=== PATIENT | male | born 1950 | race Caucasian/White ===

== ENCOUNTER 2020-08-21 09:08 | Inpatient (IN) | payer BC, OTHER ==
[2020-08-21] MEDS ORDERED: ONDANSETRON 4 MG/2 ML VIAL IVPUSH ONE (09:31)
[2020-08-21] MEDS ORDERED: LACTATED RINGERS SOLUTION 1,000 ML IV STA (09:31)
[2020-08-21] MEDS ORDERED: oxyCODONE HCL 5 MG TABLET PO ONE (09:33)
[2020-08-21 09:35] VITALS: BMI 26.4
[2020-08-21 10:20] LABS: BASO % 0.3 % (0-2.0); EOS % 0.4 % (0-4.5); HEMATOCRIT 46.9 % (35.4-49); HEMOGLOBIN 15.6 GM/dL (11.7-16.9); LYMPH % 14.5 % (8-40); MCHC 33.1 g/dl (32.0-35.9); MEAN CELL VOLUME 87.5 fl (80-96); MEAN PLT VOLUME 7.5 fl (7.5-11.1); MONO % 7.6 % (3.8-10.2); NEUT % 77.2 % (42.8-82.8); PLATELET COUNT 141 K/MM3 (134-434); RBC 5.37 M/mm3 (4.00-5.60); RDW 14.1 % (11.9-15.9); WHITE BLOOD COUNT 5.9 K/mm3 (4.0-10.0)
[2020-08-21 10:27] LABS: INR 1.11 (0.83-1.09); PROTHROMBIN TIME (PATIENT) 13.4 SEC (9.7-13.0)
[2020-08-21 10:30] LABS: ACTIVATED PTT 36.2 SECONDS (25.2-36.5)
[2020-08-21 10:44] LABS: BLOOD UREA NITROGEN 14.2 mg/dL (7-18); CALCIUM 8.9 mg/dL (8.5-10.1)
[2020-08-21 10:45] LABS: ALBUMIN 3.6 g/dl (3.4-5.0)
[2020-08-21 10:47] LABS: CREATININE 0.8 mg/dL (0.55-1.3)
[2020-08-21 10:49] LABS: BILIRUBIN,TOTAL 0.8 mg/dL (0.2-1); TOT PROT 7.8 g/dl (6.4-8.2)
[2020-08-21 11:53] LABS: EPI CELLS 2 /uL (0-25.1); HYALINE CASTS 0 /uL (0-3.1); URINE APPEARANCE CLOUDY; URINE BACTERIA >9,000 /uL (0-1359); URINE BILIRUBIN NEGATIVE (NEGATIVE); URINE COLOR YELLOW; URINE GLUCOSE (UA) NEGATIVE (NEGATIVE); URINE KETONE 3+ (NEGATIVE); URINE LEUK ESTERASE 1+ (NEGATIVE); URINE NITRITE NEGATIVE (NEGATIVE); URINE PROTEIN 2+ (NEGATIVE); URINE RBC 509 /uL (0-23.9); URINE WBC 297 /uL (0-25.8)
[2020-08-21] MEDS ORDERED: CEFTRIAXONE 1,000 MG in DEXTROSE 5%-WATER - 50 ML IVPB ONE (14:15)
[2020-08-21] MEDS ORDERED: CEFTRIAXONE 1 GM/50 ML BAG ONE (14:33)
[2020-08-21] MEDS ORDERED: ENOXAPARIN NA (PORCINE) 40 MG/0.4 ML DISP.SYRIN SQ ONE (17:10)
[2020-08-21] MEDS: ENOXAPARIN NA (PORCINE) 40 MG/0.4 ML DISP.SYRIN SQ SCH (17:28)
[2020-08-21] MEDS ORDERED: oxyCODONE HCL 5 MG TABLET ONE (18:33)
[2020-08-21] MEDS: PATIENT'S OWN MEDICATION (NON-FORMULARY) (Oxycodone Hcl [Oxycodone Hcl] 10 MG Tablet) PO SCH (18:36)
[2020-08-21] MEDS ORDERED: DOCUSATE SODIUM 100 MG CAPSULE (FP) PO ONE (21:02)
[2020-08-21] MEDS: DOCUSATE SODIUM 100 MG CAPSULE (FP) PO SCH (21:07)
[2020-08-21] MEDS: POLYETHYLENE GLYCOL 3350 119 GM BTL PO SCH (21:10)
[2020-08-21] MEDS ORDERED: GABAPENTIN 100 MG CAPSULE ONE (22:57)
[2020-08-21] MEDS: GABAPENTIN 400 MG CAPSULE PO SCH (23:14)
[2020-08-22 08:15] LABS: ALBUMIN 3.1 g/dl (3.4-5.0); BLOOD UREA NITROGEN 14.5 mg/dL (7-18); CALCIUM 8.5 mg/dL (8.5-10.1); MAGNESIUM 2.1 mg/dL (1.8-2.4)
[2020-08-22 08:17] LABS: BASO % 0.4 % (0-2.0); EOS % 0.4 % (0-4.5); HEMOGLOBIN 13.6 GM/dL (11.7-16.9); LYMPH % 15.8 % (8-40); MCH 28.8 pg (25.7-33.7); MCHC 33.2 g/dl (32.0-35.9); MEAN CELL VOLUME 86.9 fl (80-96); MEAN PLT VOLUME 7.9 fl (7.5-11.1); MONO % 10.9 % (3.8-10.2); NEUT % 72.5 % (42.8-82.8); PLATELET COUNT 136 K/MM3 (134-434); RBC 4.72 M/mm3 (4.00-5.60); RDW 14.3 % (11.9-15.9); WHITE BLOOD COUNT 6.2 K/mm3 (4.0-10.0)
[2020-08-22 08:18] LABS: CREATININE 0.8 mg/dL (0.55-1.3)
[2020-08-22 08:19] LABS: PHOSPHOROUS 3.4 mg/dL (2.5-4.9)
[2020-08-22 08:20] LABS: BILIRUBIN,TOTAL 0.8 mg/dL (0.2-1); TOT PROT 6.5 g/dl (6.4-8.2)
[2020-08-22] MEDS: ENOXAPARIN NA (PORCINE) 40 MG/0.4 ML DISP.SYRIN SQ SCH (11:50)
[2020-08-22] MEDS: POLYETHYLENE GLYCOL 3350 119 GM BTL PO SCH (11:50)
[2020-08-22] MEDS: NYSTATIN 500,000 UNITS/5 ML SUSPENSION PO SCH ×3 (11:50→23:27)
[2020-08-22] MEDS: GABAPENTIN 400 MG CAPSULE PO SCH ×3 (11:50→21:23)
[2020-08-22] MEDS: DOCUSATE SODIUM 100 MG CAPSULE (FP) PO SCH (11:51)
[2020-08-22] MEDS: PHENOL 177 ML SPRAY BOTTLE MM PRN ×3 (11:51→23:30)
[2020-08-22] MEDS: oxyCODONE HCL 5 MG TABLET PO PRN ×3 (11:51→23:27)
[2020-08-22] MEDS: PATIENT'S OWN MEDICATION (NON-FORMULARY) (Oxycodone Hcl [Oxycodone Hcl] 10 MG Tablet) PO SCH (11:52)
[2020-08-22] MEDS: ASCORBIC ACID 500 MG TABLET (FP) PO SCH (21:23)
[2020-08-23] MEDS: oxyCODONE HCL 5 MG TABLET PO PRN ×2 (05:43→13:56)
[2020-08-23] MEDS: GABAPENTIN 400 MG CAPSULE PO SCH ×3 (05:43→23:00)
[2020-08-23] MEDS: NYSTATIN 500,000 UNITS/5 ML SUSPENSION PO SCH ×3 (05:43→18:34)
[2020-08-23 07:57] LABS: POTASSIUM 3.5 mmol/L (3.5-5.1)
[2020-08-23 08:00] LABS: BASO % 0.4 % (0-2.0); CALCIUM 8.4 mg/dL (8.5-10.1); EOS % 0.9 % (0-4.5); HEMATOCRIT 41.8 % (35.4-49); HEMOGLOBIN 13.8 GM/dL (11.7-16.9); MCH 28.8 pg (25.7-33.7); MCHC 33.1 g/dl (32.0-35.9); MEAN CELL VOLUME 87.1 fl (80-96); MEAN PLT VOLUME 7.7 fl (7.5-11.1); MONO % 10.2 % (3.8-10.2); NEUT % 74.5 % (42.8-82.8); PLATELET COUNT 129 K/MM3 (134-434); WHITE BLOOD COUNT 5.4 K/mm3 (4.0-10.0)
[2020-08-23 08:01] LABS: BLOOD UREA NITROGEN 16.5 mg/dL (7-18); MAGNESIUM 2.1 mg/dL (1.8-2.4)
[2020-08-23 08:04] LABS: CREATININE 0.8 mg/dL (0.55-1.3)
[2020-08-23 08:05] LABS: BILIRUBIN,TOTAL 0.9 mg/dL (0.2-1); TOT PROT 6.3 g/dl (6.4-8.2)
[2020-08-23] MEDS ORDERED: POTASSIUM CHLORIDE TABS 20 MEQ TABLET.ER (FP) PO ONE (09:00)
[2020-08-23] MEDS ORDERED: ENOXAPARIN NA (PORCINE) 40 MG/0.4 ML DISP.SYRIN SQ SCH (10:00)
[2020-08-23] MEDS: ZINC SULFATE 220 MG CAPSULE (FP) PO SCH (10:13)
[2020-08-23] MEDS: DULoxetine HCL 20 MG CAPSULE.DR PO SCH (10:13)
[2020-08-23] MEDS: CHOLECALCIFEROL (VIT D3) 1,000 UNIT (25 MCG) TABLET PO SCH (10:13)
[2020-08-23] MEDS: POLYETHYLENE GLYCOL 3350 119 GM BTL PO SCH (10:13)
[2020-08-23] MEDS: ASCORBIC ACID 500 MG TABLET (FP) PO SCH ×2 (10:14→22:08)
[2020-08-23] MEDS: CEFTRIAXONE 1 GM in DEXTROSE 5%-WATER - 50 ML IVPB SCH (12:38)
[2020-08-23] MEDS: ENOXAPARIN NA (PORCINE) 100 MG/1 ML DISP.SYRIN SQ SCH ×2 (12:39→22:08)
[2020-08-23] MEDS ORDERED: PANTOPRAZOLE 40 MG TABLET PO ONE (16:19)
[2020-08-23] MEDS ORDERED: PT OWN MED DRAWER 7, Y5N ONE (21:15)
[2020-08-23] MEDS: DOCUSATE SODIUM 100 MG CAPSULE (FP) PO SCH (22:08)
[2020-08-24] MEDS: NYSTATIN 500,000 UNITS/5 ML SUSPENSION PO SCH ×4 (01:55→18:32)
[2020-08-24] MEDS: GABAPENTIN 400 MG CAPSULE PO SCH ×3 (05:59→22:01)
[2020-08-24] MEDS ORDERED: cefTRIAXone SODIUM 1 GM VIAL ONE (08:45)
[2020-08-24] MEDS ORDERED: DEXTROSE 5%-WATER - 50 ML IVPB ONE (08:45)
[2020-08-24] MEDS ORDERED: PT OWN MED DRAWER 7, Y5N ONE ×3 (08:47→13:12)
[2020-08-24 08:48] LABS: BASO % 0.6 % (0-2.0); EOS % 1.8 % (0-4.5); HEMATOCRIT 43.5 % (35.4-49); HEMOGLOBIN 14.7 GM/dL (11.7-16.9); LYMPH % 16.9 % (8-40); MCH 29.3 pg (25.7-33.7); MCHC 33.8 g/dl (32.0-35.9); MEAN CELL VOLUME 86.9 fl (80-96); MONO % 9.9 % (3.8-10.2); NEUT % 70.8 % (42.8-82.8); PLATELET COUNT 135 K/MM3 (134-434); RDW 14.4 % (11.9-15.9); WHITE BLOOD COUNT 4.6 K/mm3 (4.0-10.0)
[2020-08-24] MEDS: ENOXAPARIN NA (PORCINE) 100 MG/1 ML DISP.SYRIN SQ SCH ×2 (09:02→21:55)
[2020-08-24] MEDS: POLYETHYLENE GLYCOL 3350 119 GM BTL PO SCH (09:05)
[2020-08-24] MEDS: CHOLECALCIFEROL (VIT D3) 1,000 UNIT (25 MCG) TABLET PO SCH (09:07)
[2020-08-24] MEDS: CEFTRIAXONE 1 GM in DEXTROSE 5%-WATER - 50 ML IVPB SCH (09:07)
[2020-08-24] MEDS: PANTOPRAZOLE 40 MG TABLET PO SCH (09:07)
[2020-08-24] MEDS: ASCORBIC ACID 500 MG TABLET (FP) PO SCH ×2 (09:07→21:55)
[2020-08-24] MEDS: ZINC SULFATE 220 MG CAPSULE (FP) PO SCH (09:07)
[2020-08-24 09:21] LABS: POTASSIUM 3.8 mmol/L (3.5-5.1)
[2020-08-24 09:24] LABS: ALBUMIN 3.2 g/dl (3.4-5.0); BLOOD UREA NITROGEN 16.6 mg/dL (7-18); CALCIUM 8.6 mg/dL (8.5-10.1); MAGNESIUM 2.2 mg/dL (1.8-2.4)
[2020-08-24 09:27] LABS: CREATININE 0.7 mg/dL (0.55-1.3)
[2020-08-24 09:29] LABS: BILIRUBIN,TOTAL 0.9 mg/dL (0.2-1); TOT PROT 6.8 g/dl (6.4-8.2)
[2020-08-24] MEDS: DULoxetine HCL 20 MG CAPSULE.DR PO SCH (10:23)
[2020-08-24] MEDS: oxyCODONE HCL 5 MG TABLET PO PRN ×2 (10:40→18:11)
[2020-08-24] MEDS ORDERED: TAMSULOSIN HCL 0.4 MG CAP PO ONE (11:35)
[2020-08-24] MEDS: DOCUSATE SODIUM 100 MG CAPSULE (FP) PO SCH (21:55)
[2020-08-25] MEDS: NYSTATIN 500,000 UNITS/5 ML SUSPENSION PO SCH ×4 (00:51→17:15)
[2020-08-25] MEDS: oxyCODONE HCL 5 MG TABLET PO PRN ×4 (06:43→22:22)
[2020-08-25] MEDS: GABAPENTIN 400 MG CAPSULE PO SCH ×3 (06:44→22:23)
[2020-08-25 08:51] LABS: BASO % 0.3 % (0-2.0); EOS % 2.2 % (0-4.5); HEMOGLOBIN 13.7 GM/dL (11.7-16.9); LYMPH % 11.6 % (8-40); MCH 29.4 pg (25.7-33.7); MCHC 34.3 g/dl (32.0-35.9); MEAN CELL VOLUME 85.7 fl (80-96); MEAN PLT VOLUME 7.9 fl (7.5-11.1); MONO % 10.8 % (3.8-10.2); NEUT % 75.1 % (42.8-82.8); PLATELET COUNT 132 K/MM3 (134-434); RBC 4.67 M/mm3 (4.00-5.60); WHITE BLOOD COUNT 4.4 K/mm3 (4.0-10.0)
[2020-08-25] MEDS ORDERED: cefTRIAXone SODIUM 1 GM VIAL ONE (09:02)
[2020-08-25] MEDS ORDERED: DEXTROSE 5%-WATER - 50 ML IVPB ONE (09:02)
[2020-08-25] MEDS: TAMSULOSIN HCL 0.4 MG CAP PO SCH (09:30)
[2020-08-25] MEDS: DULoxetine HCL 20 MG CAPSULE.DR PO SCH (09:30)
[2020-08-25] MEDS: ENOXAPARIN NA (PORCINE) 100 MG/1 ML DISP.SYRIN SQ SCH ×2 (09:31→22:22)
[2020-08-25] MEDS: PANTOPRAZOLE 40 MG TABLET PO SCH ×2 (09:31→22:21)
[2020-08-25] MEDS: CEFTRIAXONE 1 GM in DEXTROSE 5%-WATER - 50 ML IVPB SCH (09:31)
[2020-08-25] MEDS: ZINC SULFATE 220 MG CAPSULE (FP) PO SCH (09:31)
[2020-08-25] MEDS: ASCORBIC ACID 500 MG TABLET (FP) PO SCH ×2 (09:32→22:21)
[2020-08-25] MEDS: CHOLECALCIFEROL (VIT D3) 1,000 UNIT (25 MCG) TABLET PO SCH (09:32)
[2020-08-25] MEDS: POLYETHYLENE GLYCOL 3350 119 GM BTL PO SCH (09:42)
[2020-08-25 10:31] LABS: POTASSIUM 3.6 mmol/L (3.5-5.1)
[2020-08-25 10:34] LABS: CALCIUM 8.1 mg/dL (8.5-10.1)
[2020-08-25 10:35] LABS: ALBUMIN 2.9 g/dl (3.4-5.0); BLOOD UREA NITROGEN 14.7 mg/dL (7-18); MAGNESIUM 2.1 mg/dL (1.8-2.4)
[2020-08-25 10:38] LABS: CREATININE 0.5 mg/dL (0.55-1.3)
[2020-08-25 10:40] LABS: BILIRUBIN,TOTAL 1.2 mg/dL (0.2-1); TOT PROT 6.4 g/dl (6.4-8.2)
[2020-08-25] MEDS ORDERED: TIZANIDINE HCL 2 MG TABLET PO PRN (11:14)
[2020-08-25] MEDS: DOCUSATE SODIUM 100 MG CAPSULE (FP) PO SCH (22:21)
[2020-08-25] MEDS: BACLOFEN 10 MG TABLET (FP) PO SCH (22:21)
[2020-08-26] MEDS: NYSTATIN 500,000 UNITS/5 ML SUSPENSION PO SCH ×4 (00:10→17:47)
[2020-08-26] MEDS: BACLOFEN 10 MG TABLET (FP) PO SCH ×3 (06:03→22:07)
[2020-08-26] MEDS: GABAPENTIN 400 MG CAPSULE PO SCH ×3 (06:04→22:09)
[2020-08-26] MEDS: oxyCODONE HCL 5 MG TABLET PO PRN ×2 (06:04→14:19)
[2020-08-26] MEDS ORDERED: cefTRIAXone SODIUM 1 GM VIAL ONE (08:13)
[2020-08-26] MEDS ORDERED: PT OWN MED DRAWER 7, Y5N ONE ×2 (08:13→14:13)
[2020-08-26] MEDS ORDERED: DEXTROSE 5%-WATER - 50 ML IVPB ONE (08:14)
[2020-08-26 09:14] LABS: BASO % 0.3 % (0-2.0); EOS % 1.2 % (0-4.5); HEMATOCRIT 38.7 % (35.4-49); HEMOGLOBIN 13.5 GM/dL (11.7-16.9); LYMPH % 10.6 % (8-40); MCH 30.2 pg (25.7-33.7); MCHC 34.8 g/dl (32.0-35.9); MEAN CELL VOLUME 86.6 fl (80-96); MEAN PLT VOLUME 8.1 fl (7.5-11.1); MONO % 10.5 % (3.8-10.2); NEUT % 77.4 % (42.8-82.8); PLATELET COUNT 147 K/MM3 (134-434); RBC 4.46 M/mm3 (4.00-5.60); RDW 13.8 % (11.9-15.9); WHITE BLOOD COUNT 4.6 K/mm3 (4.0-10.0)
[2020-08-26] MEDS: ASCORBIC ACID 500 MG TABLET (FP) PO SCH ×2 (09:41→22:07)
[2020-08-26] MEDS: CEFTRIAXONE 1 GM in DEXTROSE 5%-WATER - 50 ML IVPB SCH (09:41)
[2020-08-26] MEDS: PANTOPRAZOLE 40 MG TABLET PO SCH ×2 (09:41→22:08)
[2020-08-26] MEDS: CHOLECALCIFEROL (VIT D3) 1,000 UNIT (25 MCG) TABLET PO SCH (09:42)
[2020-08-26] MEDS: ZINC SULFATE 220 MG CAPSULE (FP) PO SCH (09:42)
[2020-08-26] MEDS: TAMSULOSIN HCL 0.4 MG CAP PO SCH (09:43)
[2020-08-26] MEDS: POLYETHYLENE GLYCOL 3350 119 GM BTL PO SCH (09:43)
[2020-08-26] MEDS: ENOXAPARIN NA (PORCINE) 100 MG/1 ML DISP.SYRIN SQ SCH ×2 (09:43→22:08)
[2020-08-26 09:49] LABS: POTASSIUM 3.7 mmol/L (3.5-5.1)
[2020-08-26 10:00] LABS: BLOOD UREA NITROGEN 13.3 mg/dL (7-18)
[2020-08-26 10:04] LABS: CALCIUM 8.1 mg/dL (8.5-10.1); MAGNESIUM 2.1 mg/dL (1.8-2.4)
[2020-08-26 10:08] LABS: BILIRUBIN,TOTAL 1.3 mg/dL (0.2-1); CREATININE 0.7 mg/dL (0.55-1.3)
[2020-08-26 10:09] LABS: TOT PROT 6.4 g/dl (6.4-8.2)
[2020-08-26] MEDS: DULoxetine HCL 20 MG CAPSULE.DR PO SCH (12:32)
[2020-08-26] MEDS: DOCUSATE SODIUM 100 MG CAPSULE (FP) PO SCH (22:06)
[2020-08-27] MEDS: NYSTATIN 500,000 UNITS/5 ML SUSPENSION PO SCH ×4 (00:36→17:07)
[2020-08-27] MEDS: GABAPENTIN 400 MG CAPSULE PO SCH ×3 (06:27→21:54)
[2020-08-27] MEDS: BACLOFEN 10 MG TABLET (FP) PO SCH ×3 (06:27→21:54)
[2020-08-27 08:41] LABS: BASO % 0.4 % (0-2.0); EOS % 0.6 % (0-4.5); HEMATOCRIT 41.1 % (35.4-49); LYMPH % 9.5 % (8-40); MCH 29.6 pg (25.7-33.7); MCHC 34.1 g/dl (32.0-35.9); MEAN CELL VOLUME 86.8 fl (80-96); MEAN PLT VOLUME 8.3 fl (7.5-11.1); MONO % 10.1 % (3.8-10.2); NEUT % 79.4 % (42.8-82.8); PLATELET COUNT 157 K/MM3 (134-434); RBC 4.73 M/mm3 (4.00-5.60); RDW 14.1 % (11.9-15.9); WHITE BLOOD COUNT 5.2 K/mm3 (4.0-10.0)
[2020-08-27 09:22] LABS: POTASSIUM 3.9 mmol/L (3.5-5.1)
[2020-08-27 09:26] LABS: BLOOD UREA NITROGEN 14.5 mg/dL (7-18)
[2020-08-27 09:28] LABS: ALBUMIN 3.1 g/dl (3.4-5.0); CALCIUM 8.6 mg/dL (8.5-10.1); MAGNESIUM 2.2 mg/dL (1.8-2.4)
[2020-08-27 09:31] LABS: CREATININE 0.7 mg/dL (0.55-1.3)
[2020-08-27 09:33] LABS: BILIRUBIN,TOTAL 0.9 mg/dL (0.2-1); TOT PROT 6.7 g/dl (6.4-8.2)
[2020-08-27] MEDS ORDERED: PT OWN MED DRAWER 7, Y5N ONE (10:55)
[2020-08-27] MEDS ORDERED: DEXTROSE 5%-WATER - 50 ML IVPB ONE (10:55)
[2020-08-27] MEDS ORDERED: cefTRIAXone SODIUM 1 GM VIAL ONE (10:55)
[2020-08-27] MEDS: ASCORBIC ACID 500 MG TABLET (FP) PO SCH ×2 (10:56→21:55)
[2020-08-27] MEDS: CHOLECALCIFEROL (VIT D3) 1,000 UNIT (25 MCG) TABLET PO SCH (10:56)
[2020-08-27] MEDS: ZINC SULFATE 220 MG CAPSULE (FP) PO SCH (10:57)
[2020-08-27] MEDS: CEFTRIAXONE 1 GM in DEXTROSE 5%-WATER - 50 ML IVPB SCH (10:57)
[2020-08-27] MEDS: PANTOPRAZOLE 40 MG TABLET PO SCH ×2 (10:57→21:55)
[2020-08-27] MEDS: TAMSULOSIN HCL 0.4 MG CAP PO SCH (10:57)
[2020-08-27] MEDS: DULoxetine HCL 20 MG CAPSULE.DR PO SCH (10:57)
[2020-08-27] MEDS: ENOXAPARIN NA (PORCINE) 100 MG/1 ML DISP.SYRIN SQ SCH ×2 (10:58→21:54)
[2020-08-27] MEDS: POLYETHYLENE GLYCOL 3350 119 GM BTL PO SCH (10:59)
[2020-08-27] MEDS ORDERED: ONDANSETRON 4 MG/2 ML VIAL IVPUSH ONE (12:45)
[2020-08-27] MEDS: ACETAMINOPHEN 325 MG TABLET (FP) PO PRN (16:59)
[2020-08-27] MEDS: DOCUSATE SODIUM 100 MG CAPSULE (FP) PO SCH (21:53)
[2020-08-28] MEDS: NYSTATIN 500,000 UNITS/5 ML SUSPENSION PO SCH ×4 (00:49→18:46)
[2020-08-28] MEDS: BACLOFEN 10 MG TABLET (FP) PO SCH ×3 (06:22→22:17)
[2020-08-28] MEDS: GABAPENTIN 400 MG CAPSULE PO SCH ×3 (06:22→22:18)
[2020-08-28] MEDS ORDERED: cefTRIAXone SODIUM 1 GM VIAL ONE (09:15)
[2020-08-28] MEDS ORDERED: DEXTROSE 5%-WATER - 50 ML IVPB ONE (09:15)
[2020-08-28 09:27] LABS: BASO % 0.3 % (0-2.0); HEMATOCRIT 39.6 % (35.4-49); HEMOGLOBIN 13.3 GM/dL (11.7-16.9); LYMPH % 7.5 % (8-40); MCH 28.7 pg (25.7-33.7); MCHC 33.6 g/dl (32.0-35.9); MEAN CELL VOLUME 85.4 fl (80-96); MEAN PLT VOLUME 8.3 fl (7.5-11.1); MONO % 12.8 % (3.8-10.2); NEUT % 79.4 % (42.8-82.8); PLATELET COUNT 157 K/MM3 (134-434); RBC 4.65 M/mm3 (4.00-5.60); WHITE BLOOD COUNT 9.6 K/mm3 (4.0-10.0)
[2020-08-28 09:43] LABS: POTASSIUM 3.3 mmol/L (3.5-5.1)
[2020-08-28] MEDS: CEFTRIAXONE 1 GM in DEXTROSE 5%-WATER - 50 ML IVPB SCH (09:52)
[2020-08-28] MEDS: CHOLECALCIFEROL (VIT D3) 1,000 UNIT (25 MCG) TABLET PO SCH (09:53)
[2020-08-28] MEDS: ZINC SULFATE 220 MG CAPSULE (FP) PO SCH (09:53)
[2020-08-28] MEDS: ENOXAPARIN NA (PORCINE) 100 MG/1 ML DISP.SYRIN SQ SCH ×2 (09:53→22:17)
[2020-08-28] MEDS: TAMSULOSIN HCL 0.4 MG CAP PO SCH (09:53)
[2020-08-28] MEDS: PANTOPRAZOLE 40 MG TABLET PO SCH ×2 (09:53→22:18)
[2020-08-28] MEDS: POLYETHYLENE GLYCOL 3350 119 GM BTL PO SCH (09:54)
[2020-08-28] MEDS: DULoxetine HCL 20 MG CAPSULE.DR PO SCH (09:54)
[2020-08-28 09:55] LABS: ALBUMIN 2.9 g/dl (3.4-5.0); BLOOD UREA NITROGEN 13.8 mg/dL (7-18); CALCIUM 8.5 mg/dL (8.5-10.1)
[2020-08-28] MEDS: oxyCODONE HCL 5 MG TABLET PO PRN ×2 (09:56→15:05)
[2020-08-28 09:57] LABS: MAGNESIUM 2.1 mg/dL (1.8-2.4)
[2020-08-28 10:01] LABS: CREATININE 0.6 mg/dL (0.55-1.3); TOT PROT 6.4 g/dl (6.4-8.2)
[2020-08-28 10:02] LABS: BILIRUBIN,TOTAL 1.1 mg/dL (0.2-1)
[2020-08-28] MEDS: METOCLOPRAMIDE HCL 10 MG TABLET (FP) PO PRN (10:03)
[2020-08-28] MEDS: ASCORBIC ACID 500 MG TABLET (FP) PO SCH ×2 (10:28→22:18)
[2020-08-28] MEDS ORDERED: PT OWN MED DRAWER 7, Y5N ONE ×2 (14:43→15:27)
[2020-08-28] MEDS ORDERED: POTASSIUM CHLORIDE TABS 20 MEQ TABLET.ER (FP) PO ONE (15:30)
[2020-08-28] MEDS: KCL 10 MEQ IVPB 10 MEQ/100 ML INFUS.BAG IVPB SCH ×2 (16:41→18:46)
[2020-08-28] MEDS: DOCUSATE SODIUM 100 MG CAPSULE (FP) PO SCH (22:17)
[2020-08-29] MEDS: NYSTATIN 500,000 UNITS/5 ML SUSPENSION PO SCH ×5 (00:42→23:20)
[2020-08-29] MEDS: GABAPENTIN 400 MG CAPSULE PO SCH ×4 (06:42→21:39)
[2020-08-29] MEDS: BACLOFEN 10 MG TABLET (FP) PO SCH ×3 (06:44→21:28)
[2020-08-29 08:51] LABS: BASO % 0.3 % (0-2.0); EOS % 0.3 % (0-4.5); HEMATOCRIT 37.7 % (35.4-49); HEMOGLOBIN 12.9 GM/dL (11.7-16.9); LYMPH % 7.1 % (8-40); MCH 29.7 pg (25.7-33.7); MCHC 34.3 g/dl (32.0-35.9); MEAN CELL VOLUME 86.7 fl (80-96); MEAN PLT VOLUME 8.4 fl (7.5-11.1); MONO % 11.7 % (3.8-10.2); NEUT % 80.6 % (42.8-82.8); PLATELET COUNT 163 K/MM3 (134-434); RBC 4.34 M/mm3 (4.00-5.60); RDW 14.1 % (11.9-15.9); WHITE BLOOD COUNT 10.6 K/mm3 (4.0-10.0)
[2020-08-29 09:08] LABS: POTASSIUM 3.6 mmol/L (3.5-5.1)
[2020-08-29 09:13] LABS: ALBUMIN 2.7 g/dl (3.4-5.0); CALCIUM 8.8 mg/dL (8.5-10.1); MAGNESIUM 2.1 mg/dL (1.8-2.4)
[2020-08-29 09:16] LABS: CREATININE 0.5 mg/dL (0.55-1.3)
[2020-08-29 09:18] LABS: BILIRUBIN,TOTAL 1.1 mg/dL (0.2-1); TOT PROT 6.3 g/dl (6.4-8.2)
[2020-08-29] MEDS ORDERED: cefTRIAXone SODIUM 1 GM VIAL ONE (11:00)
[2020-08-29] MEDS ORDERED: PT OWN MED DRAWER 7, Y5N ONE ×4 (11:00→21:11)
[2020-08-29] MEDS ORDERED: DEXTROSE 5%-WATER - 50 ML IVPB ONE (11:00)
[2020-08-29] MEDS: CEFTRIAXONE 1 GM in DEXTROSE 5%-WATER - 50 ML IVPB SCH (11:45)
[2020-08-29] MEDS: POLYETHYLENE GLYCOL 3350 119 GM BTL PO SCH (11:46)
[2020-08-29] MEDS: DULoxetine HCL 20 MG CAPSULE.DR PO SCH (11:46)
[2020-08-29] MEDS: PANTOPRAZOLE 40 MG TABLET PO SCH ×2 (11:46→21:28)
[2020-08-29] MEDS: TAMSULOSIN HCL 0.4 MG CAP PO SCH (11:46)
[2020-08-29] MEDS: ENOXAPARIN NA (PORCINE) 100 MG/1 ML DISP.SYRIN SQ SCH ×2 (11:47→21:27)
[2020-08-29] MEDS: oxyCODONE HCL 5 MG TABLET PO PRN ×3 (11:47→23:20)
[2020-08-29] MEDS: ASCORBIC ACID 500 MG TABLET (FP) PO SCH ×2 (12:10→21:28)
[2020-08-29] MEDS: CHOLECALCIFEROL (VIT D3) 1,000 UNIT (25 MCG) TABLET PO SCH (12:10)
[2020-08-29] MEDS: ZINC SULFATE 220 MG CAPSULE (FP) PO SCH (12:10)
[2020-08-29] MEDS: AMINO ACIDS 4.25%/D5W 1,000 ML IV SCH (15:17)
[2020-08-29] MEDS: DOCUSATE SODIUM 100 MG CAPSULE (FP) PO SCH ×2 (21:28→21:41)
[2020-08-30] MEDS: AMINO ACIDS 4.25%/D5W 1,000 ML IV SCH ×3 (04:08→19:05)
[2020-08-30] MEDS: oxyCODONE HCL 5 MG TABLET PO PRN ×2 (05:59→22:30)
[2020-08-30] MEDS: BACLOFEN 10 MG TABLET (FP) PO SCH ×3 (05:59→22:31)
[2020-08-30] MEDS: NYSTATIN 500,000 UNITS/5 ML SUSPENSION PO SCH ×3 (06:04→17:31)
[2020-08-30] MEDS: GABAPENTIN 400 MG CAPSULE PO SCH ×3 (06:04→22:31)
[2020-08-30] MEDS ORDERED: cefTRIAXone SODIUM 1 GM VIAL ONE (09:52)
[2020-08-30] MEDS ORDERED: DEXTROSE 5%-WATER - 50 ML IVPB ONE (09:52)
[2020-08-30] MEDS ORDERED: PT OWN MED DRAWER 7, Y5N ONE (09:52)
[2020-08-30] MEDS: ZINC SULFATE 220 MG CAPSULE (FP) PO SCH (10:11)
[2020-08-30] MEDS: CHOLECALCIFEROL (VIT D3) 1,000 UNIT (25 MCG) TABLET PO SCH (10:11)
[2020-08-30] MEDS: POLYETHYLENE GLYCOL 3350 119 GM BTL PO SCH (10:11)
[2020-08-30] MEDS: ENOXAPARIN NA (PORCINE) 100 MG/1 ML DISP.SYRIN SQ SCH ×2 (10:12→22:30)
[2020-08-30] MEDS: TAMSULOSIN HCL 0.4 MG CAP PO SCH (10:12)
[2020-08-30] MEDS: PANTOPRAZOLE 40 MG TABLET PO SCH ×3 (10:12→22:44)
[2020-08-30] MEDS: ASCORBIC ACID 500 MG TABLET (FP) PO SCH ×2 (10:12→22:30)
[2020-08-30] MEDS: METOCLOPRAMIDE HCL 10 MG TABLET (FP) PO PRN (10:12)
[2020-08-30] MEDS: DULoxetine HCL 20 MG CAPSULE.DR PO SCH (10:13)
[2020-08-30 11:43] LABS: BASO % 0.5 % (0-2.0); EOS % 1.6 % (0-4.5); HEMATOCRIT 34.4 % (35.4-49); HEMOGLOBIN 11.4 GM/dL (11.7-16.9); MCH 28.3 pg (25.7-33.7); MCHC 33.2 g/dl (32.0-35.9); MEAN CELL VOLUME 85.4 fl (80-96); MEAN PLT VOLUME 7.8 fl (7.5-11.1); MONO % 11.7 % (3.8-10.2); NEUT % 77.2 % (42.8-82.8); PLATELET COUNT 188 K/MM3 (134-434); RBC 4.03 M/mm3 (4.00-5.60); WHITE BLOOD COUNT 9.2 K/mm3 (4.0-10.0)
[2020-08-30 11:58] LABS: POTASSIUM 3.4 mmol/L (3.5-5.1)
[2020-08-30 12:00] LABS: CALCIUM 7.8 mg/dL (8.5-10.1)
[2020-08-30 12:01] LABS: ALBUMIN 2.3 g/dl (3.4-5.0); BLOOD UREA NITROGEN 17.4 mg/dL (7-18); MAGNESIUM 1.8 mg/dL (1.8-2.4)
[2020-08-30 12:04] LABS: CREATININE 0.5 mg/dL (0.55-1.3)
[2020-08-30 12:05] LABS: TOT PROT 5.8 g/dl (6.4-8.2)
[2020-08-30] MEDS ORDERED: POTASSIUM CHLORIDE TABS 20 MEQ TABLET.ER (FP) PO ONE (15:44)
[2020-08-30] MEDS: DOCUSATE SODIUM 100 MG CAPSULE (FP) PO SCH (22:31)
[2020-08-31] MEDS: NYSTATIN 500,000 UNITS/5 ML SUSPENSION PO SCH ×5 (00:30→23:33)
[2020-08-31] MEDS: AMINO ACIDS 4.25%/D5W 1,000 ML IV SCH ×4 (02:26→23:33)
[2020-08-31] MEDS: oxyCODONE HCL 5 MG TABLET PO PRN (04:22)
[2020-08-31] MEDS: BACLOFEN 10 MG TABLET (FP) PO SCH ×4 (06:53→22:38)
[2020-08-31] MEDS: GABAPENTIN 400 MG CAPSULE PO SCH ×4 (06:53→22:43)
[2020-08-31] MEDS ORDERED: PT OWN MED DRAWER 7, Y5N ONE ×3 (09:20→22:41)
[2020-08-31] MEDS: ASCORBIC ACID 500 MG TABLET (FP) PO SCH ×3 (09:29→22:38)
[2020-08-31] MEDS: CHOLECALCIFEROL (VIT D3) 1,000 UNIT (25 MCG) TABLET PO SCH (09:29)
[2020-08-31] MEDS: TAMSULOSIN HCL 0.4 MG CAP PO SCH (09:29)
[2020-08-31] MEDS: ENOXAPARIN NA (PORCINE) 100 MG/1 ML DISP.SYRIN SQ SCH ×2 (09:29→22:39)
[2020-08-31] MEDS: ZINC SULFATE 220 MG CAPSULE (FP) PO SCH (09:29)
[2020-08-31] MEDS: PANTOPRAZOLE 40 MG TABLET PO SCH ×2 (09:29→22:39)
[2020-08-31] MEDS: DULoxetine HCL 20 MG CAPSULE.DR PO SCH (09:30)
[2020-08-31] MEDS: POLYETHYLENE GLYCOL 3350 119 GM BTL PO SCH (09:31)
[2020-08-31 12:39] LABS: BASO % 0.4 % (0-2.0); EOS % 0.9 % (0-4.5); HEMATOCRIT 34.8 % (35.4-49); HEMOGLOBIN 11.6 GM/dL (11.7-16.9); LYMPH % 7.5 % (8-40); MCH 28.5 pg (25.7-33.7); MCHC 33.2 g/dl (32.0-35.9); MEAN CELL VOLUME 85.9 fl (80-96); MEAN PLT VOLUME 8.3 fl (7.5-11.1); MONO % 14.3 % (3.8-10.2); NEUT % 76.9 % (42.8-82.8); PLATELET COUNT 286 K/MM3 (134-434); RBC 4.06 M/mm3 (4.00-5.60); WHITE BLOOD COUNT 13.9 K/mm3 (4.0-10.0)
[2020-08-31 12:58] LABS: POTASSIUM 3.6 mmol/L (3.5-5.1)
[2020-08-31 13:04] LABS: CALCIUM 8.1 mg/dL (8.5-10.1)
[2020-08-31 13:05] LABS: ALBUMIN 2.4 g/dl (3.4-5.0); BLOOD UREA NITROGEN 19.8 mg/dL (7-18); MAGNESIUM 2.1 mg/dL (1.8-2.4)
[2020-08-31 13:08] LABS: CREATININE 0.6 mg/dL (0.55-1.3)
[2020-08-31 13:09] LABS: BILIRUBIN,TOTAL 1.2 mg/dL (0.2-1); TOT PROT 6.1 g/dl (6.4-8.2)
[2020-08-31] MEDS ORDERED: LACTATED RINGERS SOLUTION 1,000 ML/1,000 ML INFUS.BAG IV STA (15:18)
[2020-08-31] MEDS ORDERED: metoPROLOL SUCCINATE 25 MG TAB.SR.24H (FP) PO ONE (16:37)
[2020-08-31] MEDS ORDERED: METOPROLOL TARTRATE 25 MG TABLET (FP) PO ONE (16:38)
[2020-08-31] MEDS: INSULIN SLIDING SCALE (NOVOLOG) 1 VIAL SQ SCH ×2 (17:13→22:59)
[2020-08-31] MEDS: DOCUSATE SODIUM 100 MG CAPSULE (FP) PO SCH ×2 (22:38→22:39)
[2020-09-01] MEDS: AMINO ACIDS 4.25%/D5W 1,000 ML IV SCH ×2 (00:58→11:00)
[2020-09-01] MEDS ORDERED: PT OWN MED DRAWER 7, Y5N ONE ×3 (01:01→10:46)
[2020-09-01] MEDS: INSULIN SLIDING SCALE (NOVOLOG) 1 VIAL SQ SCH ×4 (06:28→22:05)
[2020-09-01] MEDS: NYSTATIN 500,000 UNITS/5 ML SUSPENSION PO SCH ×4 (06:37→23:22)
[2020-09-01] MEDS: BACLOFEN 10 MG TABLET (FP) PO SCH ×3 (06:37→22:00)
[2020-09-01] MEDS: GABAPENTIN 400 MG CAPSULE PO SCH ×3 (06:37→22:05)
[2020-09-01 08:26] LABS: BASO % 0.5 % (0-2.0); EOS % 0.7 % (0-4.5); HEMATOCRIT 27.3 % (35.4-49); HEMOGLOBIN 9.3 GM/dL (11.7-16.9); LYMPH % 8.4 % (8-40); MCH 28.9 pg (25.7-33.7); MEAN CELL VOLUME 84.9 fl (80-96); MEAN PLT VOLUME 7.5 fl (7.5-11.1); MONO % 11.3 % (3.8-10.2); NEUT % 79.1 % (42.8-82.8); PLATELET COUNT 232 K/MM3 (134-434); RBC 3.22 M/mm3 (4.00-5.60); RDW 14.1 % (11.9-15.9); WHITE BLOOD COUNT 10.7 K/mm3 (4.0-10.0)
[2020-09-01 08:45] LABS: POTASSIUM 3.3 mmol/L (3.5-5.1)
[2020-09-01 08:56] LABS: ALBUMIN 2.1 g/dl (3.4-5.0); BLOOD UREA NITROGEN 19.4 mg/dL (7-18); CALCIUM 7.8 mg/dL (8.5-10.1)
[2020-09-01 08:57] LABS: MAGNESIUM 1.8 mg/dL (1.8-2.4)
[2020-09-01 09:00] LABS: CREATININE 0.5 mg/dL (0.55-1.3)
[2020-09-01 09:01] LABS: BILIRUBIN,TOTAL 1.1 mg/dL (0.2-1); TOT PROT 5.6 g/dl (6.4-8.2)
[2020-09-01] MEDS ORDERED: KCL 10 MEQ IVPB 10 MEQ/100 ML INFUS.BAG IVPB SCH (09:15)
[2020-09-01] MEDS: PANTOPRAZOLE 40 MG TABLET PO SCH ×2 (10:43→22:05)
[2020-09-01] MEDS: CHOLECALCIFEROL (VIT D3) 1,000 UNIT (25 MCG) TABLET PO SCH (10:43)
[2020-09-01] MEDS: ASCORBIC ACID 500 MG TABLET (FP) PO SCH ×2 (10:43→22:05)
[2020-09-01] MEDS: TAMSULOSIN HCL 0.4 MG CAP PO SCH (10:43)
[2020-09-01] MEDS: ENOXAPARIN NA (PORCINE) 100 MG/1 ML DISP.SYRIN SQ SCH ×2 (10:43→22:04)
[2020-09-01] MEDS: ZINC SULFATE 220 MG CAPSULE (FP) PO SCH (10:43)
[2020-09-01] MEDS: DULoxetine HCL 20 MG CAPSULE.DR PO SCH (10:44)
[2020-09-01] MEDS: POLYETHYLENE GLYCOL 3350 119 GM BTL PO SCH (10:44)
[2020-09-01] MEDS: metoPROLOL SUCCINATE 25 MG TAB.SR.24H (FP) PO SCH (13:56)
[2020-09-01] MEDS: DOCUSATE SODIUM 100 MG CAPSULE (FP) PO SCH (22:00)
[2020-09-02] MEDS: AMINO ACIDS 4.25%/D5W 1,000 ML IV SCH ×2 (01:49→14:47)
[2020-09-02] MEDS: BACLOFEN 10 MG TABLET (FP) PO SCH ×3 (05:30→23:31)
[2020-09-02] MEDS: oxyCODONE HCL 5 MG TABLET PO PRN ×3 (05:30→23:31)
[2020-09-02] MEDS: NYSTATIN 500,000 UNITS/5 ML SUSPENSION PO SCH ×3 (05:34→18:03)
[2020-09-02] MEDS: GABAPENTIN 400 MG CAPSULE PO SCH ×3 (05:34→23:33)
[2020-09-02] MEDS: INSULIN SLIDING SCALE (NOVOLOG) 1 VIAL SQ SCH ×4 (06:13→23:32)
[2020-09-02 09:06] LABS: BASO % 0.4 % (0-2.0); HEMATOCRIT 26.6 % (35.4-49); LYMPH % 6.6 % (8-40); MCH 28.7 pg (25.7-33.7); MCHC 33.7 g/dl (32.0-35.9); MEAN PLT VOLUME 7.6 fl (7.5-11.1); MONO % 13.5 % (3.8-10.2); NEUT % 78.5 % (42.8-82.8); PLATELET COUNT 247 K/MM3 (134-434); RBC 3.13 M/mm3 (4.00-5.60); WHITE BLOOD COUNT 11.4 K/mm3 (4.0-10.0)
[2020-09-02 09:28] LABS: POTASSIUM 3.5 mmol/L (3.5-5.1)
[2020-09-02 09:36] LABS: ALBUMIN 2.1 g/dl (3.4-5.0); CALCIUM 7.6 mg/dL (8.5-10.1)
[2020-09-02 09:37] LABS: BLOOD UREA NITROGEN 16.4 mg/dL (7-18); MAGNESIUM 1.9 mg/dL (1.8-2.4)
[2020-09-02 09:38] LABS: TOT PROT 5.7 g/dl (6.4-8.2)
[2020-09-02 09:40] LABS: CREATININE 0.5 mg/dL (0.55-1.3)
[2020-09-02] MEDS ORDERED: PT OWN MED DRAWER 7, Y5N ONE (10:10)
[2020-09-02] MEDS: TAMSULOSIN HCL 0.4 MG CAP PO SCH (10:54)
[2020-09-02] MEDS: metoPROLOL SUCCINATE 25 MG TAB.SR.24H (FP) PO SCH (10:55)
[2020-09-02] MEDS: DULoxetine HCL 20 MG CAPSULE.DR PO SCH (10:55)
[2020-09-02] MEDS: PANTOPRAZOLE 40 MG TABLET PO SCH ×2 (10:55→23:32)
[2020-09-02] MEDS: ENOXAPARIN NA (PORCINE) 100 MG/1 ML DISP.SYRIN SQ SCH ×2 (10:56→22:52)
[2020-09-02] MEDS: POLYETHYLENE GLYCOL 3350 119 GM BTL PO SCH (10:56)
[2020-09-02] MEDS: ZINC SULFATE 220 MG CAPSULE (FP) PO SCH (11:15)
[2020-09-02] MEDS: ASCORBIC ACID 500 MG TABLET (FP) PO SCH ×2 (11:15→23:32)
[2020-09-02] MEDS: CHOLECALCIFEROL (VIT D3) 1,000 UNIT (25 MCG) TABLET PO SCH (11:15)
[2020-09-02] MEDS: DOCUSATE SODIUM 100 MG CAPSULE (FP) PO SCH (23:33)
[2020-09-03] MEDS: NYSTATIN 500,000 UNITS/5 ML SUSPENSION PO SCH ×5 (00:30→23:59)
[2020-09-03] MEDS: AMINO ACIDS 4.25%/D5W 1,000 ML IV SCH ×2 (03:38→16:46)
[2020-09-03] MEDS: GABAPENTIN 400 MG CAPSULE PO SCH ×2 (07:24→14:16)
[2020-09-03] MEDS: BACLOFEN 10 MG TABLET (FP) PO SCH ×2 (07:24→14:15)
[2020-09-03] MEDS: INSULIN SLIDING SCALE (NOVOLOG) 1 VIAL SQ SCH ×3 (07:29→16:47)
[2020-09-03 09:14] LABS: BASO % 0.5 % (0-2.0); EOS % 1.6 % (0-4.5); HEMATOCRIT 25.1 % (35.4-49); HEMOGLOBIN 8.6 GM/dL (11.7-16.9); LYMPH % 8.1 % (8-40); MCH 29.2 pg (25.7-33.7); MCHC 34.3 g/dl (32.0-35.9); MEAN CELL VOLUME 85.3 fl (80-96); MONO % 11.5 % (3.8-10.2); NEUT % 78.3 % (42.8-82.8); PLATELET COUNT 240 K/MM3 (134-434); RBC 2.94 M/mm3 (4.00-5.60); WHITE BLOOD COUNT 9.4 K/mm3 (4.0-10.0)
[2020-09-03 09:30] LABS: POTASSIUM 3.6 mmol/L (3.5-5.1)
[2020-09-03 09:33] LABS: ALBUMIN 2.1 g/dl (3.4-5.0); BLOOD UREA NITROGEN 17.4 mg/dL (7-18); CALCIUM 7.7 mg/dL (8.5-10.1); MAGNESIUM 1.8 mg/dL (1.8-2.4)
[2020-09-03 09:37] LABS: CREATININE 0.4 mg/dL (0.55-1.3)
[2020-09-03 09:38] LABS: BILIRUBIN,TOTAL 1.1 mg/dL (0.2-1); TOT PROT 5.8 g/dl (6.4-8.2)
[2020-09-03] MEDS ORDERED: PT OWN MED DRAWER 7, Y5N ONE ×3 (10:20→21:15)
[2020-09-03] MEDS: ENOXAPARIN NA (PORCINE) 100 MG/1 ML DISP.SYRIN SQ SCH ×2 (10:50→23:58)
[2020-09-03] MEDS: POLYETHYLENE GLYCOL 3350 119 GM BTL PO SCH (10:52)
[2020-09-03] MEDS: oxyCODONE HCL 5 MG TABLET PO PRN ×2 (10:53→16:47)
[2020-09-03] MEDS: ZINC SULFATE 220 MG CAPSULE (FP) PO SCH (11:34)
[2020-09-03] MEDS: metoPROLOL SUCCINATE 25 MG TAB.SR.24H (FP) PO SCH (11:34)
[2020-09-03] MEDS: TAMSULOSIN HCL 0.4 MG CAP PO SCH (11:34)
[2020-09-03] MEDS: PANTOPRAZOLE 40 MG TABLET PO SCH (11:34)
[2020-09-03] MEDS: ASCORBIC ACID 500 MG TABLET (FP) PO SCH (11:35)
[2020-09-03] MEDS: CHOLECALCIFEROL (VIT D3) 1,000 UNIT (25 MCG) TABLET PO SCH (11:35)
[2020-09-03] MEDS: DULoxetine HCL 20 MG CAPSULE.DR PO SCH (14:15)
[2020-09-03 17:34] LABS: EPI CELLS 1 /uL (0-25.1); HYALINE CASTS 5 /uL (0-3.1); PH,URINE 6.5 (5.0-8.0); URINE APPEARANCE CLOUDY; URINE BACTERIA 120 /uL (0-1359); URINE BILIRUBIN NEGATIVE (NEGATIVE); URINE COLOR YELLOW; URINE GLUCOSE (UA) NEGATIVE (NEGATIVE); URINE KETONE NEGATIVE (NEGATIVE); URINE LEUK ESTERASE TRACE (NEGATIVE); URINE NITRITE NEGATIVE (NEGATIVE); URINE PROTEIN TRACE (NEGATIVE); URINE UROBILINOGEN 4.0 E.U/dl mg/dL (0.2-1.0); URINE WBC 463 /uL (0-25.8)
[2020-09-03 18:55] LABS: URINE RBC 43.4 /uL (0-23.9); YEAST MODERATE (NEGATIVE)
[2020-09-04] MEDS: GABAPENTIN 400 MG CAPSULE PO SCH ×6 (00:01→23:26)
[2020-09-04] MEDS: FAT EMULSION/OLIVE/SOY (CLINOLIPID) 250 ML EMULSION IV SCH ×2 (00:04→22:39)
[2020-09-04] MEDS: DOCUSATE SODIUM 100 MG CAPSULE (FP) PO SCH ×3 (00:05→23:25)
[2020-09-04] MEDS: oxyCODONE HCL 5 MG TABLET PO PRN ×4 (00:07→23:27)
[2020-09-04] MEDS: INSULIN SLIDING SCALE (NOVOLOG) 1 VIAL SQ SCH ×5 (00:33→22:41)
[2020-09-04] MEDS: AMINO ACIDS 4.25%/D5W 1,000 ML IV SCH ×3 (01:49→16:48)
[2020-09-04] MEDS: ASCORBIC ACID 500 MG TABLET (FP) PO SCH ×4 (01:52→23:26)
[2020-09-04] MEDS: BACLOFEN 10 MG TABLET (FP) PO SCH ×6 (01:52→23:25)
[2020-09-04] MEDS: PANTOPRAZOLE 40 MG TABLET PO SCH ×4 (01:52→23:26)
[2020-09-04] MEDS: NYSTATIN 500,000 UNITS/5 ML SUSPENSION PO SCH ×6 (01:53→23:50)
[2020-09-04 10:21] LABS: BASO % 0.4 % (0-2.0); EOS % 2.1 % (0-4.5); HEMATOCRIT 25.9 % (35.4-49); LYMPH % 6.9 % (8-40); MCH 29.2 pg (25.7-33.7); MCHC 34.7 g/dl (32.0-35.9); MEAN CELL VOLUME 84.2 fl (80-96); MEAN PLT VOLUME 6.9 fl (7.5-11.1); NEUT % 76.6 % (42.8-82.8); PLATELET COUNT 242 K/MM3 (134-434); RBC 3.08 M/mm3 (4.00-5.60); WHITE BLOOD COUNT 9.9 K/mm3 (4.0-10.0)
[2020-09-04 11:01] LABS: POTASSIUM 3.4 mmol/L (3.5-5.1)
[2020-09-04] MEDS ORDERED: PT OWN MED DRAWER 7, Y5N ONE ×2 (11:11→18:15)
[2020-09-04 11:28] LABS: ALBUMIN 2.2 g/dl (3.4-5.0); BLOOD UREA NITROGEN 14.5 mg/dL (7-18); CALCIUM 7.8 mg/dL (8.5-10.1); MAGNESIUM 1.8 mg/dL (1.8-2.4)
[2020-09-04 11:31] LABS: CREATININE 0.4 mg/dL (0.55-1.3)
[2020-09-04 11:33] LABS: BILIRUBIN,TOTAL 1.3 mg/dL (0.2-1); TOT PROT 5.8 g/dl (6.4-8.2)
[2020-09-04] MEDS: ENOXAPARIN NA (PORCINE) 100 MG/1 ML DISP.SYRIN SQ SCH ×2 (11:53→22:42)
[2020-09-04] MEDS: POLYETHYLENE GLYCOL 3350 119 GM BTL PO SCH (11:54)
[2020-09-04] MEDS: metoPROLOL SUCCINATE 25 MG TAB.SR.24H (FP) PO SCH (12:14)
[2020-09-04] MEDS: CHOLECALCIFEROL (VIT D3) 1,000 UNIT (25 MCG) TABLET PO SCH (12:14)
[2020-09-04] MEDS: DULoxetine HCL 20 MG CAPSULE.DR PO SCH (12:14)
[2020-09-04] MEDS: TAMSULOSIN HCL 0.4 MG CAP PO SCH (12:14)
[2020-09-04] MEDS: ZINC SULFATE 220 MG CAPSULE (FP) PO SCH (12:14)
[2020-09-04] MEDS: POTASSIUM CHLORIDE 40 MEQ in AMINO ACIDS 4.25%/D5W 1,000 ML IV SCH (17:40)
[2020-09-05] MEDS: POTASSIUM CHLORIDE 40 MEQ in AMINO ACIDS 4.25%/D5W 1,000 ML IV SCH ×3 (04:00→14:46)
[2020-09-05] MEDS: INSULIN SLIDING SCALE (NOVOLOG) 1 VIAL SQ SCH ×4 (05:59→21:48)
[2020-09-05] MEDS: BACLOFEN 10 MG TABLET (FP) PO SCH ×3 (06:05→21:48)
[2020-09-05] MEDS: NYSTATIN 500,000 UNITS/5 ML SUSPENSION PO SCH ×3 (06:05→17:19)
[2020-09-05] MEDS: GABAPENTIN 400 MG CAPSULE PO SCH ×3 (06:05→21:49)
[2020-09-05] MEDS: oxyCODONE HCL 5 MG TABLET PO PRN ×2 (06:42→13:39)
[2020-09-05 09:08] LABS: POTASSIUM 3.4 mmol/L (3.5-5.1)
[2020-09-05 09:13] LABS: ALBUMIN 2.2 g/dl (3.4-5.0); BLOOD UREA NITROGEN 13.6 mg/dL (7-18); CALCIUM 7.7 mg/dL (8.5-10.1)
[2020-09-05 09:14] LABS: MAGNESIUM 1.9 mg/dL (1.8-2.4)
[2020-09-05] MEDS: TAMSULOSIN HCL 0.4 MG CAP PO SCH (09:15)
[2020-09-05 09:17] LABS: CREATININE 0.5 mg/dL (0.55-1.3)
[2020-09-05 09:18] LABS: BASO % 0.8 % (0-2.0); BILIRUBIN,TOTAL 1.2 mg/dL (0.2-1); EOS % 2.1 % (0-4.5); HEMATOCRIT 26.6 % (35.4-49); HEMOGLOBIN 9.1 GM/dL (11.7-16.9); LYMPH % 5.8 % (8-40); MCH 29.2 pg (25.7-33.7); MCHC 34.4 g/dl (32.0-35.9); MEAN PLT VOLUME 7.1 fl (7.5-11.1); MONO % 9.7 % (3.8-10.2); NEUT % 81.6 % (42.8-82.8); PLATELET COUNT 209 K/MM3 (134-434); RBC 3.13 M/mm3 (4.00-5.60); TOT PROT 5.8 g/dl (6.4-8.2); WHITE BLOOD COUNT 10.1 K/mm3 (4.0-10.0)
[2020-09-05] MEDS: ENOXAPARIN NA (PORCINE) 100 MG/1 ML DISP.SYRIN SQ SCH ×2 (11:03→21:46)
[2020-09-05] MEDS: DULoxetine HCL 20 MG CAPSULE.DR PO SCH (11:10)
[2020-09-05] MEDS: PANTOPRAZOLE 40 MG TABLET PO SCH ×2 (11:11→21:49)
[2020-09-05] MEDS: CHOLECALCIFEROL (VIT D3) 1,000 UNIT (25 MCG) TABLET PO SCH (11:11)
[2020-09-05] MEDS: metoPROLOL SUCCINATE 25 MG TAB.SR.24H (FP) PO SCH (11:11)
[2020-09-05] MEDS: ASCORBIC ACID 500 MG TABLET (FP) PO SCH ×2 (11:11→21:49)
[2020-09-05] MEDS: ZINC SULFATE 220 MG CAPSULE (FP) PO SCH (11:11)
[2020-09-05] MEDS: POLYETHYLENE GLYCOL 3350 119 GM BTL PO SCH (11:11)
[2020-09-05] MEDS ORDERED: INSULIN (NOVOLOG) ASPART 100 UNITS/ML 10ML VIAL ONE (16:42)
[2020-09-05] MEDS ORDERED: D5-NS + 20 MEQ KCL - 20 MEQ/1,000 ML INFUS.BAG IV SCH ×2 (16:45)
[2020-09-05] MEDS: KCL 10 MEQ IVPB 10 MEQ/100 ML INFUS.BAG IVPB SCH ×2 (16:59→18:21)
[2020-09-05] MEDS: D5-NS + 20 MEQ KCL - 20 MEQ/1,000 ML INFUS.BAG IV SCH (20:15)
[2020-09-05] MEDS ORDERED: PT OWN MED DRAWER 7, Y5N ONE ×2 (21:03→21:55)
[2020-09-05] MEDS: DOCUSATE SODIUM 100 MG CAPSULE (FP) PO SCH ×2 (21:48)
[2020-09-06] MEDS: NYSTATIN 500,000 UNITS/5 ML SUSPENSION PO SCH ×4 (00:58→17:18)
[2020-09-06] MEDS: ACETAMINOPHEN 325 MG TABLET (FP) PO PRN (01:40)
[2020-09-06] MEDS ORDERED: PT OWN MED DRAWER 7, Y5N ONE ×3 (06:02→21:50)
[2020-09-06] MEDS: BACLOFEN 10 MG TABLET (FP) PO SCH ×4 (06:25→22:55)
[2020-09-06] MEDS: INSULIN SLIDING SCALE (NOVOLOG) 1 VIAL SQ SCH ×4 (06:25→22:56)
[2020-09-06] MEDS: GABAPENTIN 400 MG CAPSULE PO SCH ×4 (06:25→22:55)
[2020-09-06 09:02] LABS: BASO % 0.5 % (0-2.0); EOS % 2.1 % (0-4.5); HEMATOCRIT 28.2 % (35.4-49); HEMOGLOBIN 9.6 GM/dL (11.7-16.9); LYMPH % 5.7 % (8-40); MCH 29.2 pg (25.7-33.7); MCHC 34.1 g/dl (32.0-35.9); MEAN CELL VOLUME 85.6 fl (80-96); MEAN PLT VOLUME 6.9 fl (7.5-11.1); MONO % 6.1 % (3.8-10.2); NEUT % 85.6 % (42.8-82.8); PLATELET COUNT 262 K/MM3 (134-434); RBC 3.29 M/mm3 (4.00-5.60); RDW 14.4 % (11.9-15.9); WHITE BLOOD COUNT 10.7 K/mm3 (4.0-10.0)
[2020-09-06 09:20] LABS: POTASSIUM 4.2 mmol/L (3.5-5.1)
[2020-09-06 09:23] LABS: ALBUMIN 2.4 g/dl (3.4-5.0); BLOOD UREA NITROGEN 13.5 mg/dL (7-18); MAGNESIUM 2.1 mg/dL (1.8-2.4)
[2020-09-06 09:26] LABS: CREATININE 0.6 mg/dL (0.55-1.3)
[2020-09-06 09:28] LABS: BILIRUBIN,TOTAL 1.4 mg/dL (0.2-1); TOT PROT 6.4 g/dl (6.4-8.2)
[2020-09-06] MEDS: TAMSULOSIN HCL 0.4 MG CAP PO SCH (09:50)
[2020-09-06] MEDS: ZINC SULFATE 220 MG CAPSULE (FP) PO SCH (09:51)
[2020-09-06] MEDS: ENOXAPARIN NA (PORCINE) 100 MG/1 ML DISP.SYRIN SQ SCH ×2 (09:51→22:01)
[2020-09-06] MEDS: DULoxetine HCL 20 MG CAPSULE.DR PO SCH (09:51)
[2020-09-06] MEDS: POLYETHYLENE GLYCOL 3350 119 GM BTL PO SCH (09:51)
[2020-09-06] MEDS: PANTOPRAZOLE 40 MG TABLET PO SCH ×3 (09:52→22:56)
[2020-09-06] MEDS: metoPROLOL SUCCINATE 25 MG TAB.SR.24H (FP) PO SCH (09:52)
[2020-09-06] MEDS: ASCORBIC ACID 500 MG TABLET (FP) PO SCH ×3 (09:53→22:56)
[2020-09-06] MEDS: CHOLECALCIFEROL (VIT D3) 1,000 UNIT (25 MCG) TABLET PO SCH (09:53)
[2020-09-06] MEDS ORDERED: FENTANYL PATCH WASTE TD PRN (10:08)
[2020-09-06] MEDS ORDERED: fentaNYL 25mcg/hr PATCH.TD72 TD SCH (10:15)
[2020-09-06] MEDS: D5-NS + 20 MEQ KCL - 20 MEQ/1,000 ML INFUS.BAG IV SCH (14:04)
[2020-09-06] MEDS ORDERED: D5-NS + 20 MEQ KCL - 20 MEQ/1,000 ML INFUS.BAG IV SCH (16:40)
[2020-09-06] MEDS: DOCUSATE SODIUM 100 MG CAPSULE (FP) PO SCH ×2 (22:02→22:55)
[2020-09-07] MEDS: NYSTATIN 500,000 UNITS/5 ML SUSPENSION PO SCH ×5 (00:05→22:59)
[2020-09-07] MEDS ORDERED: PT OWN MED DRAWER 7, Y5N ONE ×3 (05:38→15:19)
[2020-09-07] MEDS: BACLOFEN 10 MG TABLET (FP) PO SCH ×4 (06:12→21:49)
[2020-09-07] MEDS: GABAPENTIN 400 MG CAPSULE PO SCH ×4 (06:12→21:49)
[2020-09-07] MEDS: INSULIN SLIDING SCALE (NOVOLOG) 1 VIAL SQ SCH ×4 (06:16→22:59)
[2020-09-07 09:39] LABS: BASO % 0.6 % (0-2.0); EOS % 1.1 % (0-4.5); HEMATOCRIT 27.3 % (35.4-49); LYMPH % 7.4 % (8-40); MCH 28.7 pg (25.7-33.7); MCHC 33.1 g/dl (32.0-35.9); MEAN CELL VOLUME 86.7 fl (80-96); MEAN PLT VOLUME 6.7 fl (7.5-11.1); MONO % 7.4 % (3.8-10.2); NEUT % 83.5 % (42.8-82.8); PLATELET COUNT 241 K/MM3 (134-434); RBC 3.15 M/mm3 (4.00-5.60); RDW 14.7 % (11.9-15.9); WHITE BLOOD COUNT 11.1 K/mm3 (4.0-10.0)
[2020-09-07 10:03] LABS: ALBUMIN 2.2 g/dl (3.4-5.0)
[2020-09-07 10:04] LABS: BLOOD UREA NITROGEN 15.5 mg/dL (7-18)
[2020-09-07 10:07] LABS: CREATININE 0.6 mg/dL (0.55-1.3)
[2020-09-07 10:08] LABS: BILIRUBIN,TOTAL 1.1 mg/dL (0.2-1); TOT PROT 5.9 g/dl (6.4-8.2)
[2020-09-07] MEDS ORDERED: FUROSEMIDE 40 MG/4 ML INJECTABLE VIAL IVPUSH ONE (11:39)
[2020-09-07] MEDS: ENOXAPARIN NA (PORCINE) 100 MG/1 ML DISP.SYRIN SQ SCH ×2 (12:07→21:49)
[2020-09-07] MEDS: ACETAMINOPHEN 325 MG TABLET (FP) PO PRN ×2 (12:09→18:58)
[2020-09-07] MEDS: metoPROLOL SUCCINATE 25 MG TAB.SR.24H (FP) PO SCH (12:09)
[2020-09-07] MEDS: POLYETHYLENE GLYCOL 3350 119 GM BTL PO SCH (12:22)
[2020-09-07] MEDS: ZINC SULFATE 220 MG CAPSULE (FP) PO SCH (12:39)
[2020-09-07] MEDS: ASCORBIC ACID 500 MG TABLET (FP) PO SCH ×2 (12:39→21:50)
[2020-09-07] MEDS: CHOLECALCIFEROL (VIT D3) 1,000 UNIT (25 MCG) TABLET PO SCH (12:39)
[2020-09-07] MEDS: DULoxetine HCL 20 MG CAPSULE.DR PO SCH (12:49)
[2020-09-07] MEDS: TAMSULOSIN HCL 0.4 MG CAP PO SCH (12:49)
[2020-09-07] MEDS: PANTOPRAZOLE 40 MG TABLET PO SCH ×2 (12:50→21:49)
[2020-09-07] MEDS: SODIUM CHLORIDE 1,000 ML IV SCH (15:25)
[2020-09-07] MEDS: DOCUSATE SODIUM 100 MG CAPSULE (FP) PO SCH (21:49)
[2020-09-08] MEDS: SODIUM CHLORIDE 1,000 ML IV SCH (04:30)
[2020-09-08] MEDS: INSULIN SLIDING SCALE (NOVOLOG) 1 VIAL SQ SCH ×4 (06:15→23:13)
[2020-09-08] MEDS: NYSTATIN 500,000 UNITS/5 ML SUSPENSION PO SCH ×4 (06:15→23:15)
[2020-09-08] MEDS: BACLOFEN 10 MG TABLET (FP) PO SCH ×3 (06:15→23:13)
[2020-09-08] MEDS: GABAPENTIN 400 MG CAPSULE PO SCH ×3 (06:15→23:13)
[2020-09-08] MEDS: DULoxetine HCL 30 MG CAPSULE.DR PO SCH (12:00)
[2020-09-08] MEDS: ENOXAPARIN NA (PORCINE) 100 MG/1 ML DISP.SYRIN SQ SCH ×2 (12:01→22:47)
[2020-09-08] MEDS: ACETAMINOPHEN 325 MG TABLET (FP) PO PRN ×2 (12:01→18:57)
[2020-09-08] MEDS: ASCORBIC ACID 500 MG TABLET (FP) PO SCH ×2 (12:04→23:14)
[2020-09-08] MEDS: CHOLECALCIFEROL (VIT D3) 1,000 UNIT (25 MCG) TABLET PO SCH (12:04)
[2020-09-08] MEDS: ZINC SULFATE 220 MG CAPSULE (FP) PO SCH (12:05)
[2020-09-08] MEDS: POLYETHYLENE GLYCOL 3350 119 GM BTL PO SCH (12:05)
[2020-09-08] MEDS: MEGESTROL ACETATE 40 MG TABLET PO SCH (12:28)
[2020-09-08] MEDS: PANTOPRAZOLE 40 MG TABLET PO SCH ×2 (12:28→23:14)
[2020-09-08] MEDS: metoPROLOL SUCCINATE 25 MG TAB.SR.24H (FP) PO SCH (12:28)
[2020-09-08] MEDS: TAMSULOSIN HCL 0.4 MG CAP PO SCH (12:28)
[2020-09-08] MEDS ORDERED: PT OWN MED DRAWER 7, Y5N ONE (15:02)
[2020-09-08] MEDS ORDERED: FENTANYL PATCH WASTE MC PRN (15:03)
[2020-09-08] MEDS ORDERED: fentaNYL 50mcg/hr PATCH.TD72 TD SCH (15:30)
[2020-09-08] MEDS: DEXTROSE 5%-NORMAL SALINE 1,000 ML IV SCH (15:43)
[2020-09-08 21:46] LABS: POTASSIUM 3.5 mmol/L (3.5-5.1)
[2020-09-08 21:47] LABS: BLOOD UREA NITROGEN 16.9 mg/dL (7-18); CALCIUM 8.3 mg/dL (8.5-10.1)
[2020-09-08 21:52] LABS: CREATININE 0.6 mg/dL (0.55-1.3)
[2020-09-08] MEDS: DOCUSATE SODIUM 100 MG CAPSULE (FP) PO SCH (23:13)
[2020-09-09] MEDS: DEXTROSE 5%-NORMAL SALINE 1,000 ML IV SCH (06:28)
[2020-09-09] MEDS: ACETAMINOPHEN 325 MG TABLET (FP) PO PRN ×2 (06:50→14:24)
[2020-09-09] MEDS: GABAPENTIN 400 MG CAPSULE PO SCH ×3 (06:51→21:38)
[2020-09-09] MEDS: NYSTATIN 500,000 UNITS/5 ML SUSPENSION PO SCH ×3 (06:51→18:28)
[2020-09-09] MEDS: BACLOFEN 10 MG TABLET (FP) PO SCH ×3 (06:51→22:16)
[2020-09-09] MEDS: INSULIN SLIDING SCALE (NOVOLOG) 1 VIAL SQ SCH ×4 (06:51→21:38)
[2020-09-09] MEDS: ENOXAPARIN NA (PORCINE) 100 MG/1 ML DISP.SYRIN SQ SCH (12:28)
[2020-09-09] MEDS: POLYETHYLENE GLYCOL 3350 119 GM BTL PO SCH (12:29)
[2020-09-09] MEDS: ASCORBIC ACID 500 MG TABLET (FP) PO SCH ×2 (12:44→21:39)
[2020-09-09] MEDS: ZINC SULFATE 220 MG CAPSULE (FP) PO SCH (12:44)
[2020-09-09] MEDS: metoPROLOL SUCCINATE 25 MG TAB.SR.24H (FP) PO SCH (12:44)
[2020-09-09] MEDS: MEGESTROL ACETATE 40 MG TABLET PO SCH (12:44)
[2020-09-09] MEDS: DULoxetine HCL 30 MG CAPSULE.DR PO SCH (12:44)
[2020-09-09] MEDS: TAMSULOSIN HCL 0.4 MG CAP PO SCH (12:44)
[2020-09-09] MEDS: PANTOPRAZOLE 40 MG TABLET PO SCH ×2 (12:44→21:39)
[2020-09-09] MEDS: CHOLECALCIFEROL (VIT D3) 1,000 UNIT (25 MCG) TABLET PO SCH (12:45)
[2020-09-09] MEDS: D5-1/2NS+20 MEQ KCL - 20 MEQ/1,000 ML INFUS.BAG IV SCH (14:24)
[2020-09-09] MEDS ORDERED: PT OWN MED DRAWER 7, Y5N ONE (21:23)
[2020-09-09] MEDS: DOCUSATE SODIUM 100 MG CAPSULE (FP) PO SCH (21:38)
[2020-09-10] MEDS: NYSTATIN 500,000 UNITS/5 ML SUSPENSION PO SCH ×4 (01:00→17:02)
[2020-09-10] MEDS ORDERED: PT OWN MED DRAWER 7, Y5N ONE ×2 (05:59→09:39)
[2020-09-10] MEDS: BACLOFEN 10 MG TABLET (FP) PO SCH ×2 (06:21→14:21)
[2020-09-10] MEDS: D5-1/2NS+20 MEQ KCL - 20 MEQ/1,000 ML INFUS.BAG IV SCH ×2 (06:23→12:38)
[2020-09-10] MEDS: GABAPENTIN 400 MG CAPSULE PO SCH ×2 (06:38→15:00)
[2020-09-10] MEDS: INSULIN SLIDING SCALE (NOVOLOG) 1 VIAL SQ SCH ×3 (06:38→16:45)
[2020-09-10 09:14] LABS: POTASSIUM 3.6 mmol/L (3.5-5.1)
[2020-09-10 09:18] LABS: ALBUMIN 2.1 g/dl (3.4-5.0); CALCIUM 7.7 mg/dL (8.5-10.1)
[2020-09-10 09:21] LABS: CREATININE 0.6 mg/dL (0.55-1.3); PHOSPHOROUS 3.4 mg/dL (2.5-4.9)
[2020-09-10 09:23] LABS: BILIRUBIN,TOTAL 1.2 mg/dL (0.2-1); TOT PROT 5.7 g/dl (6.4-8.2)
[2020-09-10] MEDS: CHOLECALCIFEROL (VIT D3) 1,000 UNIT (25 MCG) TABLET PO SCH (09:46)
[2020-09-10] MEDS: ASCORBIC ACID 500 MG TABLET (FP) PO SCH (09:46)
[2020-09-10] MEDS: TAMSULOSIN HCL 0.4 MG CAP PO SCH (09:46)
[2020-09-10] MEDS: ACETAMINOPHEN 325 MG TABLET (FP) PO PRN (09:46)
[2020-09-10] MEDS: DULoxetine HCL 30 MG CAPSULE.DR PO SCH (09:46)
[2020-09-10] MEDS: ZINC SULFATE 220 MG CAPSULE (FP) PO SCH (09:46)
[2020-09-10] MEDS: PANTOPRAZOLE 40 MG TABLET PO SCH (09:47)
[2020-09-10] MEDS: POLYETHYLENE GLYCOL 3350 119 GM BTL PO SCH (09:47)
[2020-09-10] MEDS: metoPROLOL SUCCINATE 25 MG TAB.SR.24H (FP) PO SCH (09:48)
[2020-09-10] MEDS: MEGESTROL ACETATE 40 MG TABLET PO SCH (09:48)
[2020-09-10] MEDS ORDERED: oxyCODONE HCL 5 MG TABLET PO PRN (10:15)
[2020-09-10] MEDS ORDERED: HYDROmorphone HCl 2 MG/ML VIAL IVPB STA (10:58)
[2020-09-10] MEDS ORDERED: ENOXAPARIN NA (PORCINE) 100 MG/1 ML DISP.SYRIN SQ SCH (22:00)
[2020-09-11 00:12] VITALS: BP 137/61; PULSE 88; TEMP 98.5
== END 2020-09-10 20:45 | DRG 689 ==
LOC: JER 09:08 → JERBED 14:15 → J6WEST-2 08-22 02:28 → J5S 08-23 15:42
PROVIDERS: ATTEND Nurse Practitioner Family
DX: N39.0 Urinary tract infection, site not specified (principal); U07.1 COVID-19; R45.851 Suicidal ideations; R64 Cachexia; J90 Pleural effusion, not elsewhere classified; E87.1 Hypo-osmolality and hyponatremia; B37.0 Candidal stomatitis; F44.4 Conversion disorder with motor symptom or deficit; R10.9 Unspecified abdominal pain; N28.89 Other specified disorders of kidney and ureter; F32.9 Major depressive disorder, single episode, unspecified; Z68.26 Body mass index [BMI] 26.0-26.9, adult; I10 Essential (primary) hypertension; E78.5 Hyperlipidemia, unspecified; K59.09 Other constipation; G62.9 Polyneuropathy, unspecified; L89.91 Pressure ulcer of unspecified site, stage 1; R63.0 Anorexia; R62.7 Adult failure to thrive; E87.6 Hypokalemia; R22.2 Localized swelling, mass and lump, trunk
CPT/HCPCS: 36415; 71045-TC-FY; 71250-TC; 74177-TC; 76705-TC; 76775-TC; 76856-TC; 80048; 80053; 81003; 82272; 82378; 82436; 82550; 82728; 82962; 83036; 83605; 83615; 83690; 83735; 83930; 83935; 84100; 84133; 84153; 84300; 84443; 84478; 84484; 85025; 85379; 85610; 85730; 86140; 86301; 86769; 86850; 86900; 86901; 87040; 87086; 87186; 93005; 93010; 93970-TC; 93971-TC; 97162-GP; 99285-25; C9803; J0475; J8999; Q9967; U0003